=== PATIENT | male | born 1970 | race Caucasian/White ===

== ENCOUNTER 2024-11-05 15:49 | Emergency (ER) | payer OTHER ==
[~2024-11-05] VITALS: Ht 184.2 cm; Wt 90.9 kg
[2024-11-05 15:58] VITALS: TEMP 98
[2024-11-05 16:32] LABS: APPEARANCE,URINE TURBID (CLEAR); GLUCOSE, URINE (UA) NEGATIVE (NEGATIVE); LEUKOCYTE ESTERASE ,URINE LARGE (NEGATIVE); NITRATE,URINE NEGATIVE (NEGATIVE); OCCULT BLOOD,URINE SMALL (NEGATIVE); SPECIFIC GRAVITIY, URINE 1.029 (1.003-1.030)
[2024-11-05 16:37] LABS: PLATELET COUNT (AUTO) 178 K/uL (150-450); RED BLOOD CELL COUNT(AUTO) 4.89 MIL/uL (4.50-5.90); RED CELL DISTRIBUTION WIDTH 13.5 % (11.5-14.5); WHITE BLOOD COUNT (AUTO) 7.9 K/uL (4.5-11.0)
[2024-11-05 16:41] LABS: CALCIUM, TOTAL 8.6 mg/dL (8.8-10.5); CREATININE 0.82 mg/dL (0.60-1.30); GLOMERULAR FILTR. RATE CALC > 60 mL/min (>60); GLUCOSE,RANDOM 90 mg/dL (70-110); SODIUM SERUM 141 mmol/L (136-145); UREA NITROGEN, BLOOD 12 mg/dL (7-18)
[2024-11-05 16:42] LABS: SQUAMOUS EPITHELIAL CELL,UR Few /LPF (None Seen)
[2024-11-05] MEDS: SODIUM CHLORIDE 0.9% 1,000 ML IV ONE (17:05)
[2024-11-05] MEDS: CefTRIAXone 1 GM/DEXTROSE 50 ML IV ONE (17:06)
[2024-11-05] MEDS ORDERED: DOXY-354 PO (18:13)
[2024-11-05] MEDS ORDERED: IBUP-1492 PO (18:13)
[2024-11-05] MEDS: DOXYCYCLINE HYCLATE 100 MG TABLET PO ONE (18:20)
[2024-11-05] MEDS ORDERED: CEPH-558 PO (18:23)
[2024-11-05 18:26] VITALS: BP 125/80; PULSE 75; RESP 28; O2SAT 97
== END 2024-11-05 18:38 | disposition home or self-care (01) ==
LOC: EMS 15:49
DX: N39.0 Urinary tract infection, site not specified (principal)
CPT/HCPCS: 99284; 96365; 80048; 81001; 85025; 87086; 36415; 87591; J0696; J7030